=== PATIENT | male | born 1990 | race Caucasian/White ===

== ENCOUNTER 2021-09-01 02:35 | Inpatient (IN) | payer BC, OTHER ==
[~2021-09-01] VITALS: Ht 180.3 cm; Wt 88.8 kg
[2021-09-01 04:13] LABS: Basophils # (auto) 0 10 ^3/uL (0-0.2); Basophils % (auto) 0.2 % (0.0-2.0); Hemoglobin 18.5 g/dL (13.5-17.5); Lymphocytes # (auto) 2.8 10 ^3/uL (0.4-5.4); Neutrophils # (auto) 5.5 10 ^3/uL (1.6-8.6); White Blood Cell 9.3 10^3/uL (4.4-10.8)
[2021-09-01 04:15] LABS: Eosinophils # (auto) 0 10 ^3/uL (0-0.8); Eosinophils % (auto) 0.4 % (0.0-7.0); Hematocrit 53.9 % (41.0-53.0); Lymphocytes % (auto) 29.6 % (10.0-50.0); Mean Corpuscular Hemoglobin 30.5 pg (28.0-32.0); Mean Corpuscular Hgb Conc. 34.2 g/dL (32.0-36.0); Mean Corpuscular Volume 89.3 fL (80.0-100.0); Monocytes % (auto) 10.3 % (0.0-12.0); Neutrophils % (auto) 59.5 % (37.0-80.0); Nucleated Red Blood Cells % 0.3 %; Red Blood Cells 6.04 10^6/uL (4.5-5.90)
[2021-09-01 04:36] LABS: Albumin 3.9 g/dL (3.4-5.0); Calcium 8.6 mg/dL (8.5-10.1); Magnesium 2.5 mg/dL (1.6-2.6); Potassium 3.7 mmol/L (3.5-5.1)
[2021-09-01 04:40] LABS: Lactic Acid w/Reflex 2.7 mmol/L (0.4-2.0)
[2021-09-01 04:43] LABS: BUN/Creatinine Ratio 13.4; Bilirubin, Total 1.3 mg/dL (0.2-1.0); Total Protein 7.9 g/dL (6.4-8.2)
[2021-09-01] MEDS ORDERED: SODIUM CHLORIDE 0.9% 2,100 ML IV ONE (05:30)
[2021-09-01 07:05] LABS: INR 1.34 (0.9-1.15)
[2021-09-01 07:07] LABS: Urine Bacteria NONE SEEN /hpf (None Seen); Urine Blood Negative /uL (Negative); Urine Hyaline Cast MANY /lpf (0 - 2); Urine Mucus FEW (None Seen); Urine Specific Gravity 1.032 (1.001-1.035); Urine WBC 5 /hpf (0 - 3)
[2021-09-01] MEDS ORDERED: CHOLECALCIFEROL (VITD3) 2,000 UNIT CAP/TAB PO ONE (11:00)
[2021-09-01] MEDS ORDERED: PANTOPRAZOLE 40 MG/10 ML VIAL INJ IV ONE (11:00)
[2021-09-01] MEDS ORDERED: NITROGLYCERIN 0.4 MG SL TAB SL PRN (11:00)
[2021-09-01] MEDS ORDERED: ACETAMINOPHEN 325 MG TAB PO PRN (11:00)
[2021-09-01] MEDS ORDERED: MORPHINE SULFATE INJECTION 2 MG/ML SYRG IV PRN ×2 (11:00)
[2021-09-01] MEDS ORDERED: metroNIDAZOLE 500 MG TAB PO ONE (11:00)
[2021-09-01] MEDS ORDERED: SODIUM CHLORIDE 0.9% 1,000 ML IV SCH (11:00)
[2021-09-01] MEDS ORDERED: levoFLOXacin 500MG 100 ML IV ONE (11:00)
[2021-09-01] MEDS ORDERED: SODIUM CHLORIDE 0.9% 250 ML IV ONE ×2 (14:45)
[2021-09-01 14:46] LABS: Amphetamine Screen, Urine NEGATIVE (NEGATIVE); Barbiturate Scree,Urine NEGATIVE (NEGATIVE); Benzodiazephine Screen, Urine NEGATIVE (NEGATIVE); Cannabinoid Screen, Urine NEGATIVE (NEGATIVE); Cocaine Screen, Urine NEGATIVE (NEGATIVE); Opiate Scree,Urine NEGATIVE (NEGATIVE); Phencyclidine Screen, Urine NEGATIVE (NEGATIVE)
[2021-09-01] MEDS: metroNIDAZOLE 500 MG TAB PO SCH (19:46)
[2021-09-01] MEDS: ONDANSETRON HCL 4 MG/2 ML VIAL IV PRN (23:10)
[2021-09-02] MEDS: metroNIDAZOLE 500 MG TAB PO SCH ×3 (03:50→19:03)
[2021-09-02 07:11] LABS: Basophils # (auto) 0 10 ^3/uL (0-0.2); Basophils % (auto) 0.2 % (0.0-2.0); Eosinophils # (auto) 0.3 10 ^3/uL (0-0.8); Eosinophils % (auto) 5.2 % (0.0-7.0); Hematocrit 39.2 % (41.0-53.0); Hemoglobin 13.4 g/dL (13.5-17.5); Lymphocytes # (auto) 1.9 10 ^3/uL (0.4-5.4); Lymphocytes % (auto) 29.3 % (10.0-50.0); Mean Corpuscular Hemoglobin 30.3 pg (28.0-32.0); Mean Corpuscular Hgb Conc. 34.2 g/dL (32.0-36.0); Mean Corpuscular Volume 88.6 fL (80.0-100.0); Monocytes # (auto) 0.7 10 ^3/uL (0-1.3); Monocytes % (auto) 10.4 % (0.0-12.0); Neutrophils # (auto) 3.5 10 ^3/uL (1.6-8.6); Neutrophils % (auto) 54.9 % (37.0-80.0); Nucleated Red Blood Cells % 0.1 %; Red Blood Cells 4.43 10^6/uL (4.5-5.90); Red Cell Distribution Width 12.8 % (11.8-14.3); White Blood Cell 6.3 10^3/uL (4.4-10.8)
[2021-09-02 07:44] LABS: Albumin 2.9 g/dL (3.4-5.0); Potassium 3.6 mmol/L (3.5-5.1)
[2021-09-02 07:48] LABS: BUN/Creatinine Ratio 20.8; Bilirubin, Total 0.9 mg/dL (0.2-1.0); Total Protein 5.9 g/dL (6.4-8.2)
[2021-09-02] MEDS ORDERED: PANTOPRAZOLE 40 MG/10 ML VIAL INJ IV SCH (10:00)
[2021-09-02] MEDS: levoFLOXacin 500MG 100 ML IV SCH (10:37)
[2021-09-02] MEDS: ONDANSETRON HCL 4 MG/2 ML VIAL IV PRN (10:37)
[2021-09-02] MEDS: CHOLECALCIFEROL (VITD3) 2,000 UNIT CAP/TAB PO SCH (10:38)
[2021-09-02] MEDS ORDERED: CALCIUM CARB 500 MG CHEW TAB PO PRN (18:30)
[2021-09-03] MEDS: metroNIDAZOLE 500 MG TAB PO SCH ×3 (03:00→18:26)
[2021-09-03 04:45] VITALS: BP 98/56
[2021-09-03] MEDS: HYDROcodone-ACET 5/325MG TAB PO PRN ×2 (05:26→19:50)
[2021-09-03 07:56] LABS: BUN/Creatinine Ratio 13.2; Calcium 7.3 mg/dL (8.5-10.1); Potassium 3.4 mmol/L (3.5-5.1)
[2021-09-03 09:00] VITALS: BP 102/56
[2021-09-03] MEDS: levoFLOXacin 500MG 100 ML IV SCH (09:44)
[2021-09-03] MEDS: PANTOPRAZOLE 40 MG TAB PO SCH (09:44)
[2021-09-03] MEDS: CHOLECALCIFEROL (VITD3) 2,000 UNIT CAP/TAB PO SCH (09:44)
[2021-09-03] MEDS: D5W/SOD CHLO 0.9% 1,000 ML IV SCH (12:47)
[2021-09-03 13:00] VITALS: BP 97/54
[2021-09-03 16:36] VITALS: BP 102/58
[2021-09-03 22:16] VITALS: BP 101/56
[2021-09-04] MEDS: metroNIDAZOLE 500 MG TAB PO SCH ×4 (02:38→21:42)
[2021-09-04] MEDS: D5W/SOD CHLO 0.9% 1,000 ML IV SCH (04:36)
[2021-09-04 05:20] VITALS: BP 98/59
[2021-09-04] MEDS: levoFLOXacin 500MG 100 ML IV SCH (08:44)
[2021-09-04 08:47] VITALS: BP 93/62
[2021-09-04] MEDS: CHOLECALCIFEROL (VITD3) 2,000 UNIT CAP/TAB PO SCH (09:26)
[2021-09-04] MEDS: PANTOPRAZOLE 40 MG TAB PO SCH ×2 (09:26→21:42)
[2021-09-04] MEDS ORDERED: diphenhdrAMINE HCL 50 MG/1 ML VL ONE (10:49)
[2021-09-04] MEDS ORDERED: LIDOCAINE VISCOUS 2% 15ML UD ONE (10:49)
[2021-09-04] MEDS: fentaNYL CITRATE 100 MCG/2 ML VL ONE ×2 (12:30→12:37)
[2021-09-04] MEDS: MIDAZOLAM HCL 5 MG/ML-1ML VIAL ONE ×2 (12:30→12:34)
[2021-09-04] MEDS ORDERED: SODIUM CHLORIDE 0.9% 500 ML IV ONE (13:45)
[2021-09-04] MEDS: SODIUM CHLORIDE 0.9% 1,000 ML IV SCH (15:17)
[2021-09-04 15:25] LABS: Calcium 7.3 mg/dL (8.5-10.1); Potassium 3.7 mmol/L (3.5-5.1)
[2021-09-04 15:26] LABS: Basophils # (auto) 0 10 ^3/uL (0-0.2); Basophils % (auto) 0.2 % (0.0-2.0); Eosinophils # (auto) 0.2 10 ^3/uL (0-0.8); Hematocrit 31.3 % (41.0-53.0); Hemoglobin 10.8 g/dL (13.5-17.5); Lymphocytes # (auto) 1.6 10 ^3/uL (0.4-5.4); Lymphocytes % (auto) 48.2 % (10.0-50.0); Mean Corpuscular Hemoglobin 30.4 pg (28.0-32.0); Mean Corpuscular Hgb Conc. 34.7 g/dL (32.0-36.0); Mean Corpuscular Volume 87.6 fL (80.0-100.0); Monocytes # (auto) 0.3 10 ^3/uL (0-1.3); Monocytes % (auto) 9.5 % (0.0-12.0); Neutrophils # (auto) 1.2 10 ^3/uL (1.6-8.6); Neutrophils % (auto) 35.1 % (37.0-80.0); Nucleated Red Blood Cells % 0.1 %; Red Blood Cells 3.57 10^6/uL (4.5-5.90); Red Cell Distribution Width 12.8 % (11.8-14.3); White Blood Cell 3.3 10^3/uL (4.4-10.8)
[2021-09-04 15:27] LABS: BUN/Creatinine Ratio 7.4
[2021-09-04] MEDS: SUCRALFATE 1 GM/10 ML ORAL SUSP PO SCH ×2 (16:52→21:42)
[2021-09-04 17:03] VITALS: BP 102/59
[2021-09-04 22:25] VITALS: BP 105/71
[2021-09-05] MEDS: SODIUM CHLORIDE 0.9% 1,000 ML IV SCH ×2 (00:05→10:11)
[2021-09-05] MEDS: metroNIDAZOLE 500 MG TAB PO SCH ×2 (03:00→10:12)
[2021-09-05 05:00] VITALS: BP 99/64
[2021-09-05] MEDS: SUCRALFATE 1 GM/10 ML ORAL SUSP PO SCH ×2 (06:34→11:21)
[2021-09-05 08:15] VITALS: BP 126/63
[2021-09-05 09:03] VITALS: BP 126/63
[2021-09-05] MEDS: PANTOPRAZOLE 40 MG TAB PO SCH ×2 (10:00→10:12)
[2021-09-05] MEDS: levoFLOXacin 500MG 100 ML IV SCH (10:11)
[2021-09-05] MEDS: CHOLECALCIFEROL (VITD3) 2,000 UNIT CAP/TAB PO SCH (10:12)
[2021-09-05] MEDS ORDERED: SUCR1TAB22 OR (11:11)
[2021-09-05] MEDS ORDERED: PANT40T PO (11:11)
[2021-09-05 12:31] VITALS: BP 110/61
== END 2021-09-05 13:30 | disposition home or self-care (01) | DRG 391 ==
LOC: EDBD 02:35 → ER 02:39 → TELE 10:48 → TELE-WESTW 09-03 04:42
PROVIDERS: ADMIT Internal Medicine; ATTEND Internal Medicine Nephrology
PROC: 0DB68ZX Excision of Stomach, Via Natural or Artificial Opening Endoscopic, Diagnostic (ICD-10-PCS; 2021-09-04)
PROC: 0DB48ZX Excision of Esophagogastric Junction, Via Natural or Artificial Opening Endoscopic, Diagnostic (ICD-10-PCS; 2021-09-04)
PROC: 0DB98ZX Excision of Duodenum, Via Natural or Artificial Opening Endoscopic, Diagnostic (ICD-10-PCS; principal; 2021-09-04 12:28)
DX: K52.9 Noninfective gastroenteritis and colitis, unspecified (principal); N17.0 Acute kidney failure with tubular necrosis; E87.2 Acidosis; C79.9 Secondary malignant neoplasm of unspecified site; K22.10 Ulcer of esophagus without bleeding; G93.40 Encephalopathy, unspecified; E86.0 Dehydration; K29.80 Duodenitis without bleeding; K29.60 Other gastritis without bleeding; K44.9 Diaphragmatic hernia without obstruction or gangrene; K26.9 Duodenal ulcer, unspecified as acute or chronic, without hemorrhage or perforation; Z85.528 Personal history of other malignant neoplasm of kidney; K25.9 Gastric ulcer, unspecified as acute or chronic, without hemorrhage or perforation; Z86.16 Personal history of COVID-19; Z20.822 Contact with and (suspected) exposure to COVID-19
CPT/HCPCS: 36415; 43239; 70450; 71045; 74176; 80048; 80053; 80307; 81001; 82140; 82550; 82728; 83605; 83690; 83735; 83880; 84484; 85025; 85610; 87040; 87426; 87493; 93005; 96360; C9113; G0378; J1956; J2250; J2405; J7042

== ENCOUNTER 2022-01-04 17:05 | Emergency (ER) | payer BC ==
[~2022-01-04] VITALS: Ht 180.3 cm; Wt 85.7 kg
[~2022-01-04 17:05] MED LIST: PANT40T PO; SUCR1TAB22 OR
[2022-01-04 17:07] VITALS: BP 117/74
== END 2022-01-04 19:47 | disposition left against medical advice (07) ==
LOC: ER 17:05
DX: R06.02 Shortness of breath (principal); R42 Dizziness and giddiness; Z53.21 Procedure and treatment not carried out due to patient leaving prior to being seen by health care provider

== ENCOUNTER 2022-02-02 07:49 | Inpatient (IN) | payer BC ==
[~2022-02-02] VITALS: Ht 177.8 cm; Wt 93.3 kg
[2022-02-02 08:40] LABS: Basophils # (auto) 0 10 ^3/uL (0-0.2); Basophils % (auto) 0.4 % (0.0-2.0); Eosinophils # (auto) 0.3 10 ^3/uL (0-0.8); Eosinophils % (auto) 6.5 % (0.0-7.0); Hemoglobin 15.6 g/dL (13.5-17.5); Lymphocytes % (auto) 42.1 % (10.0-50.0); Mean Corpuscular Hemoglobin 29.9 pg (28.0-32.0); Mean Corpuscular Hgb Conc. 34.6 g/dL (32.0-36.0); Mean Corpuscular Volume 86.4 fL (80.0-100.0); Monocytes # (auto) 0.4 10 ^3/uL (0-1.3); Monocytes % (auto) 9.2 % (0.0-12.0); Neutrophils % (auto) 41.8 % (37.0-80.0); Red Blood Cells 5.21 10^6/uL (4.5-5.90); Red Cell Distribution Width 13.6 % (11.8-14.3); White Blood Cell 4.8 10^3/uL (4.4-10.8)
[2022-02-02 08:44] LABS: Albumin 3.6 g/dL (3.4-5.0); Calcium 8.7 mg/dL (8.5-10.1); Potassium 3.9 mmol/L (3.5-5.1)
[2022-02-02 08:47] LABS: BUN/Creatinine Ratio 14.9; Bilirubin, Total 0.7 mg/dL (0.2-1.0); Total Protein 7.4 g/dL (6.4-8.2)
[2022-02-02] MEDS ORDERED: metroNIDAZOLE 500MG/100ML 100 ML IV ONE (09:15)
[2022-02-02] MEDS ORDERED: SODIUM CHLORIDE 0.9% 1,000 ML IV ONE ×2 (09:15)
[2022-02-02] MEDS ORDERED: cefTRIAXone 1GM/50ML D5W 50 ML IV ONE (09:15)
[2022-02-02] MEDS ORDERED: ONDANSETRON HCL 4 MG/2 ML VIAL IV ONE (10:00)
[2022-02-02] MEDS ORDERED: MORPHINE SULFATE INJ 2 MG/ml SYRG IV ONE (10:00)
[2022-02-02] MEDS ORDERED: NITROGLYCERIN 0.4 MG SL TAB SL PRN (12:45)
[2022-02-02] MEDS ORDERED: MORPHINE SULFATE INJ 2 MG/ml SYRG IV PRN ×2 (12:45→14:30)
[2022-02-02 13:53] LABS: Urine Bacteria NONE SEEN /hpf (None Seen); Urine Blood Negative /uL (Negative); Urine Mucus FEW (None Seen); Urine WBC 2 /hpf (0 - 3)
[2022-02-02] MEDS ORDERED: PANTOPRAZOLE 40 MG/10 ML VIAL INJ IV ONE (14:30)
[2022-02-02] MEDS ORDERED: ONDANSETRON HCL 4 MG/2 ML VIAL IV PRN (14:30)
[2022-02-02] MEDS ORDERED: HYDROcodone-ACET 5/325MG TAB PO PRN (14:30)
[2022-02-02] MEDS ORDERED: DOCUSATE SOD 100 MG CAP PO PRN (14:30)
[2022-02-02] MEDS ORDERED: LORazepam 0.5 MG TAB PO PRN (14:30)
[2022-02-02] MEDS ORDERED: ACETAMINOPHEN 325 MG TAB PO PRN (14:30)
[2022-02-02] MEDS ORDERED: hydrALAZINE HCL 20 MG/ML VL IV PRN (14:30)
[2022-02-02] MEDS ORDERED: SODIUM CHLORIDE 0.9% 1,000 ML IV SCH (14:30)
[2022-02-02 15:53] LABS: Phosphorus 3.3 mg/dL (2.5-4.90)
[2022-02-02 16:53] LABS: INR 1.1 (0.9-1.15); Partial Thromboplastin Time 35.8 sec (23.6-33.0)
[2022-02-02] MEDS: SUCRALFATE 1 GM/10 ML ORAL SUSP PO SCH ×3 (17:00→21:44)
[2022-02-02 17:42] VITALS: BP 92/58
[2022-02-02] MEDS ORDERED: LACTATED RINGER'S 2,000 ML IV ONE (18:15)
[2022-02-02] MEDS ORDERED: PNEUMOCOCCAL VACC POLYS 25 MCG/0.5 ML VIAL IM ONE (18:15)
[2022-02-02] MEDS ORDERED: GLUCAGON HYDROCHLORIDE (RDNA) 1 MG VIAL IV ONE (18:30)
[2022-02-02] MEDS ORDERED: DEXTROSE (50%) 50ML SYRG IV ONE (18:30)
[2022-02-02] MEDS ORDERED: NOREPINEPHRINE 8 MG/250ML KIT 250 ML IV SCH (19:00)
[2022-02-02] MEDS ORDERED: LORazepam 2MG/ML-1ML VIAL IV PRN (19:00)
[2022-02-02] MEDS ORDERED: MORPHINE SULFATE 4 MG/ML SYR/VIAL IV PRN (19:00)
[2022-02-02] MEDS ORDERED: LEVOTHYROXINE SODIUM 25 MCG TAB PO ONE (19:15)
[2022-02-02] MEDS ORDERED: D5W/SOD CHLO 0.9% 1,000 ML IV SCH (20:15)
[2022-02-02] MEDS: CLINDAMYCIN 600MG IV 50 ML IV SCH (21:21)
[2022-02-02 21:39] VITALS: BP 106/68
[2022-02-02] MEDS: ATORVASTATIN 20 MG TAB PO SCH (21:43)
[2022-02-02] MEDS ORDERED: D5W/SOD CHL 0.45% 1,000 ML IV SCH (22:45)
[2022-02-03] MEDS: DEXTROSE 10% 1,000 ML IV SCH ×4 (01:26→23:43)
[2022-02-03 05:00] VITALS: BP 96/50
[2022-02-03] MEDS: SUCRALFATE 1 GM/10 ML ORAL SUSP PO SCH ×4 (05:26→21:24)
[2022-02-03] MEDS: CLINDAMYCIN 600MG IV 50 ML IV SCH ×3 (05:32→21:25)
[2022-02-03 05:48] LABS: INR 1.45 (0.9-1.15); Partial Thromboplastin Time 61.1 sec (23.6-33.0)
[2022-02-03 09:00] VITALS: BP 97/57
[2022-02-03] MEDS ORDERED: GASTROGRAFIN 120 ML SOL ONE (09:04)
[2022-02-03] MEDS: ENOXAPARIN SOD 40 MG/0.4 ML SYRINGE SC SCH (11:51)
[2022-02-03] MEDS: PANTOPRAZOLE 40 MG/10 ML VIAL INJ IV SCH (11:51)
[2022-02-03] MEDS: cefTRIAXone 1GM/50ML D5W 50 ML IV SCH (12:05)
[2022-02-03 13:00] VITALS: BP 108/60
[2022-02-03 14:16] LABS: Basophils # (auto) 0 10 ^3/uL (0-0.2); Basophils % (auto) 0.3 % (0.0-2.0); Eosinophils # (auto) 0.2 10 ^3/uL (0-0.8); Eosinophils % (auto) 4.7 % (0.0-7.0); Hematocrit 37.1 % (41.0-53.0); Hemoglobin 12.8 g/dL (13.5-17.5); Lymphocytes # (auto) 1.8 10 ^3/uL (0.4-5.4); Lymphocytes % (auto) 40.2 % (10.0-50.0); Mean Corpuscular Hemoglobin 29.9 pg (28.0-32.0); Mean Corpuscular Hgb Conc. 34.6 g/dL (32.0-36.0); Mean Corpuscular Volume 86.5 fL (80.0-100.0); Monocytes # (auto) 0.4 10 ^3/uL (0-1.3); Monocytes % (auto) 8.1 % (0.0-12.0); Neutrophils # (auto) 2.1 10 ^3/uL (1.6-8.6); Neutrophils % (auto) 46.7 % (37.0-80.0); Nucleated Red Blood Cells % 0.1 %; Red Blood Cells 4.29 10^6/uL (4.5-5.90); Red Cell Distribution Width 13.3 % (11.8-14.3); White Blood Cell 4.4 10^3/uL (4.4-10.8)
[2022-02-03 17:00] VITALS: BP 88/55
[2022-02-03 17:27] LABS: BUN/Creatinine Ratio 13.5; Potassium 3.7 mmol/L (3.5-5.1)
[2022-02-03 17:28] LABS: Calcium 8.2 mg/dL (8.5-10.1); Phosphorus 3.3 mg/dL (2.5-4.90)
[2022-02-03 17:29] LABS: Albumin 2.9 g/dL (3.4-5.0); Bilirubin, Total 0.3 mg/dL (0.2-1.0); Magnesium 1.8 mg/dL (1.6-2.6); Total Protein 6.1 g/dL (6.4-8.2)
[2022-02-03 17:30] LABS: CRP High Sensitivity 2.83 mg/dL (< 0.3); Uric Acid 7.2 mg/dL (3.5-7.2)
[2022-02-03] MEDS: ATORVASTATIN 20 MG TAB PO SCH (21:24)
[2022-02-03 22:00] VITALS: BP 92/55
[2022-02-04 05:00] VITALS: BP 94/53
[2022-02-04] MEDS: CLINDAMYCIN 600MG IV 50 ML IV SCH ×2 (06:14→14:00)
[2022-02-04] MEDS: SUCRALFATE 1 GM/10 ML ORAL SUSP PO SCH ×2 (06:14→11:39)
[2022-02-04 06:30] LABS: Hematocrit 33.8 % (41.0-53.0); Hemoglobin 11.9 g/dL (13.5-17.5); Mean Corpuscular Hemoglobin 30.2 pg (28.0-32.0); Mean Corpuscular Hgb Conc. 35.2 g/dL (32.0-36.0); Mean Corpuscular Volume 85.7 fL (80.0-100.0); Red Blood Cells 3.95 10^6/uL (4.5-5.90); Red Cell Distribution Width 13.1 % (11.8-14.3); White Blood Cell 3.1 10^3/uL (4.4-10.8)
[2022-02-04 06:40] LABS: Basophils % (manual) 0 (0.0-2.0); Blast Cells 0; Metamyelocytes % 0; Myelocytes % 0; Promyelocytes % 0; Reactive Lymphocytes 0
[2022-02-04 06:41] LABS: Calcium 8.2 mg/dL (8.5-10.1); Potassium 4.1 mmol/L (3.5-5.1)
[2022-02-04] MEDS: cefTRIAXone 1GM/50ML D5W 50 ML IV SCH (08:47)
[2022-02-04 08:53] LABS: Band Neutrophils % (manual) 1; Eosinophils % (manual) 4 (0-7); Lymphocytes % (manual) 53 (10.0-50.0); Monocytes % (manual) 6 (0-12)
[2022-02-04 09:00] VITALS: BP 99/58
[2022-02-04] MEDS: ENOXAPARIN SOD 40 MG/0.4 ML SYRINGE SC SCH (10:21)
[2022-02-04] MEDS: PANTOPRAZOLE 40 MG/10 ML VIAL INJ IV SCH (10:21)
[2022-02-04] MEDS ORDERED: CIPR-173 PO (10:46)
[2022-02-04] MEDS ORDERED: METR500T PO (10:46)
== END 2022-02-04 16:45 | disposition home or self-care (01) | DRG 871 ==
LOC: ER 07:49 → OVERFLOW 12:39 → WEST WING 17:36 → TELE-WESTW 02-03 01:43
PROVIDERS: ADMIT Hospitalist; ATTEND Internal Medicine Pulmonary Disease
DX: A41.9 Sepsis, unspecified organism (principal); R65.21 Severe sepsis with septic shock; J18.9 Pneumonia, unspecified organism; K52.9 Noninfective gastroenteritis and colitis, unspecified; K21.9 Gastro-esophageal reflux disease without esophagitis; Z20.822 Contact with and (suspected) exposure to COVID-19; K29.00 Acute gastritis without bleeding; K29.90 Gastroduodenitis, unspecified, without bleeding; R68.0 Hypothermia, not associated with low environmental temperature; K44.9 Diaphragmatic hernia without obstruction or gangrene; Z82.49 Family history of ischemic heart disease and other diseases of the circulatory system; Z85.820 Personal history of malignant melanoma of skin; Z88.8 Allergy status to other drugs, medicaments and biological substances
CPT/HCPCS: 36415; 71045; 74176; 74250; 80048; 80053; 80061; 81001; 82550; 82728; 82962; 83036; 83605; 83615; 83690; 83735; 83880; 84100; 84439; 84443; 84484; 84550; 85007; 85025; 85027; 85379; 85610; 85652; 85730; 86141; 87040; 87076; 87086; 93005; 96361; 96365; 96367; 96375; C9113; G0378; J0696; J2405; J3490

== ENCOUNTER 2022-02-25 11:02 | Inpatient (IN) | payer BC ==
[~2022-02-25] VITALS: Ht 177.8 cm; Wt 79.0 kg
[~2022-02-25 11:02] MED LIST changes: +CIPR-173 PO; +METR500T PO
[2022-02-25] MEDS ORDERED: METOCLOPRAMIDE HCL 5MG/ml INJ 2ml VIAL IM ONE (12:00)
[2022-02-25] MEDS ORDERED: SODIUM CHLORIDE 0.9% 1,000 ML IVB ONE (12:00)
[2022-02-25] MEDS ORDERED: MORPHINE SULFATE 4 MG/ML SYR/VIAL IV PRN (12:00)
[2022-02-25 13:41] LABS: Basophils # (auto) 0 10 ^3/uL (0-0.2); Basophils % (auto) 0.4 % (0.0-2.0); Eosinophils # (auto) 0.2 10 ^3/uL (0-0.8); Eosinophils % (auto) 3.3 % (0.0-7.0); Hemoglobin 14.4 g/dL (13.5-17.5); Lymphocytes # (auto) 1.4 10 ^3/uL (0.4-5.4); Lymphocytes % (auto) 26.8 % (10.0-50.0); Mean Corpuscular Hemoglobin 29.4 pg (28.0-32.0); Mean Corpuscular Hgb Conc. 33.5 g/dL (32.0-36.0); Mean Corpuscular Volume 87.6 fL (80.0-100.0); Monocytes # (auto) 0.2 10 ^3/uL (0-1.3); Monocytes % (auto) 4.8 % (0.0-12.0); Neutrophils # (auto) 3.4 10 ^3/uL (1.6-8.6); Neutrophils % (auto) 64.7 % (37.0-80.0); Nucleated Red Blood Cells % 0.1 %; Red Cell Distribution Width 13.7 % (11.8-14.3); White Blood Cell 5.2 10^3/uL (4.4-10.8)
[2022-02-25 13:43] LABS: Albumin 3.7 g/dL (3.4-5.0); Calcium 8.3 mg/dL (8.5-10.1); Potassium 3.9 mmol/L (3.5-5.1)
[2022-02-25 13:44] LABS: INR 1.1 (0.9-1.15); Partial Thromboplastin Time 29.6 sec (23.6-33.0)
[2022-02-25 13:45] LABS: BUN/Creatinine Ratio 23.2; Bilirubin, Total 0.8 mg/dL (0.2-1.0)
[2022-02-25] MEDS ORDERED: IOHEXOL 300 MG/ML 100ML BOTTLE IJ ONE (14:07)
[2022-02-25 16:04] LABS: Urine Bacteria NONE SEEN /hpf (None Seen); Urine Blood Negative /uL (Negative); Urine Mucus FEW (None Seen); Urine Specific Gravity 1.023 (1.001-1.035); Urine WBC 1 /hpf (0 - 3)
[2022-02-25] MEDS ORDERED: PROCHLORPERAZINE EDISYLATE 5 MG/ML 2ML VIAL IV ONE (16:15)
[2022-02-25] MEDS ORDERED: ACETAMINOPHEN 325 MG TAB PO PRN (19:00)
[2022-02-25] MEDS ORDERED: D5W/LACTATED RINGERS 1,000 ML IV ONE (19:00)
[2022-02-25] MEDS ORDERED: METOCLOPRAMIDE HCL 5MG/ml INJ 2ml VIAL IV PRN (19:00)
[2022-02-26 05:00] VITALS: BP 97/62
[2022-02-26 09:00] VITALS: BP 99/69
[2022-02-26] MEDS: cefTRIAXone 1GM/50ML D5W 50 ML IV SCH (09:00)
[2022-02-26] MEDS: D5W 5% 1,000 ML IV SCH ×2 (11:56→20:28)
[2022-02-26] MEDS ORDERED: DEXTROSE (50%) 50ML SYRG IV PRN (12:45)
[2022-02-26] MEDS ORDERED: GASTROGRAFIN 120 ML SOL ONE (12:49)
[2022-02-26 13:00] VITALS: BP 97/65
[2022-02-26] MEDS: metroNIDAZOLE 500MG/100ML 100 ML IV SCH ×2 (14:54→21:40)
[2022-02-26] MEDS: ACCU-CHEK COMFORT CURVE STRIP VI SCH ×3 (16:55→23:26)
[2022-02-26 17:00] VITALS: BP 101/71
[2022-02-26] MEDS: HYDROcodone-ACET 5/325MG TAB PO PRN (20:46)
[2022-02-26] MEDS: PANTOPRAZOLE 40 MG/10 ML VIAL INJ IV SCH (21:41)
[2022-02-26 23:03] VITALS: BP 98/56
[2022-02-27] MEDS: ACCU-CHEK COMFORT CURVE STRIP VI SCH ×6 (04:00→23:54)
[2022-02-27 05:36] VITALS: BP 98/55
[2022-02-27] MEDS: metroNIDAZOLE 500MG/100ML 100 ML IV SCH ×3 (05:49→21:31)
[2022-02-27] MEDS: D5W 5% 1,000 ML IV SCH ×2 (05:50→15:15)
[2022-02-27 06:03] LABS: Basophils # (auto) 0 10 ^3/uL (0-0.2); Basophils % (auto) 0.4 % (0.0-2.0); Eosinophils # (auto) 0.3 10 ^3/uL (0-0.8); Eosinophils % (auto) 9.1 % (0.0-7.0); Hematocrit 40.5 % (41.0-53.0); Hemoglobin 13.7 g/dL (13.5-17.5); Lymphocytes # (auto) 1.5 10 ^3/uL (0.4-5.4); Lymphocytes % (auto) 48.2 % (10.0-50.0); Mean Corpuscular Hemoglobin 29.9 pg (28.0-32.0); Mean Corpuscular Hgb Conc. 33.9 g/dL (32.0-36.0); Mean Corpuscular Volume 88.2 fL (80.0-100.0); Monocytes # (auto) 0.4 10 ^3/uL (0-1.3); Monocytes % (auto) 11.4 % (0.0-12.0); Neutrophils % (auto) 30.9 % (37.0-80.0); Nucleated Red Blood Cells % 0.2 %; Red Blood Cells 4.59 10^6/uL (4.5-5.90); Red Cell Distribution Width 13.5 % (11.8-14.3); White Blood Cell 3.2 10^3/uL (4.4-10.8)
[2022-02-27 06:15] LABS: Calcium 8.1 mg/dL (8.5-10.1); Magnesium 2.1 mg/dL (1.6-2.6); Potassium 3.4 mmol/L (3.5-5.1)
[2022-02-27 06:18] LABS: BUN/Creatinine Ratio 19.7; Bilirubin, Total 0.6 mg/dL (0.2-1.0); Total Protein 6.1 g/dL (6.4-8.2)
[2022-02-27 08:55] VITALS: BP 104/63
[2022-02-27] MEDS: cefTRIAXone 1GM/50ML D5W 50 ML IV SCH (09:39)
[2022-02-27] MEDS: ENOXAPARIN SOD 40 MG/0.4 ML SYRINGE SC SCH (09:39)
[2022-02-27] MEDS: PANTOPRAZOLE 40 MG/10 ML VIAL INJ IV SCH ×2 (09:39→21:31)
[2022-02-27 13:25] VITALS: BP 97/60
[2022-02-27] MEDS: ONDANSETRON HCL 4 MG/2 ML VIAL IV PRN ×2 (15:24→20:34)
[2022-02-27] MEDS: HYDROcodone-ACET 5/325MG TAB PO PRN ×3 (15:25→20:35)
[2022-02-27 17:01] VITALS: BP 99/59
[2022-02-27 22:00] VITALS: BP 94/56
[2022-02-28] MEDS: D5W 5% 1,000 ML IV SCH ×3 (01:20→21:09)
[2022-02-28] MEDS: ACCU-CHEK COMFORT CURVE STRIP VI SCH ×6 (03:31→23:34)
[2022-02-28 05:00] VITALS: BP 94/60
[2022-02-28] MEDS: metroNIDAZOLE 500MG/100ML 100 ML IV SCH ×3 (05:06→21:06)
[2022-02-28 06:11] LABS: Potassium 3.3 mmol/L (3.5-5.1)
[2022-02-28 09:00] VITALS: BP 95/54
[2022-02-28] MEDS: cefTRIAXone 1GM/50ML D5W 50 ML IV SCH (09:00)
[2022-02-28] MEDS: ENOXAPARIN SOD 40 MG/0.4 ML SYRINGE SC SCH (10:01)
[2022-02-28] MEDS: PANTOPRAZOLE 40 MG/10 ML VIAL INJ IV SCH ×2 (10:01→21:06)
[2022-02-28] MEDS: ONDANSETRON HCL 4 MG/2 ML VIAL IV PRN (12:23)
[2022-02-28 13:28] VITALS: BP 95/57
[2022-02-28 17:17] VITALS: BP 102/52
[2022-02-28 22:00] VITALS: BP 99/57
[2022-03-01] MEDS: ACCU-CHEK COMFORT CURVE STRIP VI SCH ×3 (03:38→12:07)
[2022-03-01 05:09] VITALS: BP 91/50
[2022-03-01] MEDS: metroNIDAZOLE 500MG/100ML 100 ML IV SCH ×2 (05:15→14:00)
[2022-03-01] MEDS: D5W 5% 1,000 ML IV SCH (07:01)
[2022-03-01] MEDS: cefTRIAXone 1GM/50ML D5W 50 ML IV SCH (08:52)
[2022-03-01 09:00] VITALS: BP 95/48
[2022-03-01] MEDS: PANTOPRAZOLE 40 MG/10 ML VIAL INJ IV SCH (09:32)
[2022-03-01] MEDS: ENOXAPARIN SOD 40 MG/0.4 ML SYRINGE SC SCH (09:32)
[2022-03-01 11:40] LABS: Hematocrit 36.3 % (41.0-53.0); Hemoglobin 12.2 g/dL (13.5-17.5); Mean Corpuscular Hgb Conc. 33.6 g/dL (32.0-36.0); Mean Corpuscular Volume 86.4 fL (80.0-100.0); Red Cell Distribution Width 13.1 % (11.8-14.3)
[2022-03-01 11:58] LABS: Band Neutrophils % (manual) 0; Basophils % (manual) 0 (0.0-2.0); Blast Cells 0; Metamyelocytes % 0; Myelocytes % 0; Promyelocytes % 0; Reactive Lymphocytes 0
[2022-03-01 13:00] VITALS: BP 110/56
[2022-03-01 13:16] LABS: Eosinophils % (manual) 8 (0-7); Lymphocytes % (manual) 56 (10.0-50.0); Monocytes % (manual) 10 (0-12)
[2022-03-01] MEDS ORDERED: METR500T PO (13:54)
[2022-03-01 14:28] LABS: Alanine Aminotransferase 21 U/L (16-61); Alkaline Phosphatase 34 U/L (45-117); Anion Gap 10 (5-15); Aspartate Aminotransferase 27 U/L (15-37); BUN/Creatinine Ratio 8.2; Bilirubin, Total 0.3 mg/dL (0.2-1.0); Blood Urea Nitrogen 6 mg/dL (7-18); Calcium 8.1 mg/dL (8.5-10.1); Carbon Dioxide 24 mmol/L (21-32); Chloride 104 mmol/L (98-107); GFR African American 160 mL/min; GFR Non-African American 132 mL/min; Glucose 74 mg/dL (74-106); Potassium 3.8 mmol/L (3.5-5.1); Sodium 138 mmol/L (136-145)
[2022-03-01 14:29] LABS: Albumin 2.9 g/dL (3.4-5.0)
== END 2022-03-01 15:42 | disposition home or self-care (01) | DRG 390 ==
LOC: ER 11:02 → TELE 18:46 → TELE-EAST 22:34
PROVIDERS: ADMIT Internal Medicine; ATTEND Internal Medicine
PROC: 0D9670Z Drainage of Stomach with Drainage Device, Via Natural or Artificial Opening (ICD-10-PCS; principal; 2022-02-25)
DX: K56.699 Other intestinal obstruction unspecified as to partial versus complete obstruction (principal); E03.9 Hypothyroidism, unspecified; E86.0 Dehydration; I88.0 Nonspecific mesenteric lymphadenitis; K52.9 Noninfective gastroenteritis and colitis, unspecified; K29.70 Gastritis, unspecified, without bleeding; E16.2 Hypoglycemia, unspecified; K21.9 Gastro-esophageal reflux disease without esophagitis; Z20.822 Contact with and (suspected) exposure to COVID-19; Z82.49 Family history of ischemic heart disease and other diseases of the circulatory system; Z85.820 Personal history of malignant melanoma of skin
CPT/HCPCS: 36415; 70450; 74177; 74250; 80053; 81001; 82962; 83690; 83735; 84132; 84443; 85007; 85025; 85027; 85048; 85610; 85730; 87040; 87045; 87077; 87081; 87177; 87205; 87493; 93005; 96361; 96372; 96374; C9113; G0378; J0696; J2405; J3490